=== PATIENT | female | born 2000 | race Caucasian/White ===

== ENCOUNTER 2018-11-20 14:14 | Emergency (ER) | payer BC ==
[~2018-11-20] VITALS: Wt 89.0 kg
[~2018-11-20 14:14] MED LIST: ACET500C5 PO; IBUP-1542 PO
[2018-11-20 14:17] VITALS: BP 130/78; PULSE 76; RESP 18
--- NOTE | 2018-11-20 15:05 | ERD ---
ER Documentation Chief Complaint Chief Complaint with spotting HPI 18-year-old female, previously healthy, with EGA approximately 6 weeks with irregular periods, presents to the emergency department, complaining of 2 days with vaginal spotting, associated with mild cramping pelvic pain. She denies abdominal pain, no fever, no vaginal discharge. The patient has established care at [facility]. ROS All systems reviewed and are negative except as per history of present illness. Medications Home Meds Active Scripts Acetaminophen* (Tylophen*) 500 Mg Capsule, 1 CAP PO Q6H PRN for PAIN AND OR ELEVATED TEMP, #16 CAP Prov:СЕРГЕЙ JIMENEZ MD 11/09/15 Ibuprofen* (Motrin*) 600 Mg Tab, 600 MG PO Q6, #16 TAB Prov:СЕРГЕЙ JIMENEZ MD 11/09/15 PMhx/Soc Medical and Surgical Hx: pt denies Medical Hx, pt denies Surgical Hx History of Surgery: No Anesthesia Reaction: No Hx Neurological Disorder: No Hx Respiratory Disorders: No Hx Cardiac Disorders: No Hx Psychiatric Problems: No Hx Miscellaneous Medical Probl: No Hx Alcohol Use: No Hx Substance Use: No Hx Tobacco Use: No FmHx Family History: No diabetes, No coronary disease Physical Exam Vitals Vital Signs Date Temp Pulse Resp B/P (MAP) Pulse Ox O2 O2 Flow FiO2 Time Delivery Rate 11/20/18 98.2 76 18 130/78 99 14:17 (95) Physical Exam Const: No acute distress Head: Atraumatic Eyes: Normal Conjunctiva ENT: Normal External Ears, Nose and Mouth. Neck: Full range of motion. No meningismus. Resp: Clear to auscultation bilaterally Cardio: Regular rate and rhythm, no murmurs Abd: Soft, non tender, non distended. Normal bowel sounds Skin: No petechiae or rashes Back: No midline or flank tenderness Ext: No cyanosis, or edema Neur: Awake and alert Psych: Normal Mood and Affect Result Diagram: 11/20/18 1507 Results 24 hrs Laboratory Tests Test 11/20/18 15:07 White Blood Count 9.6 10^3/ul Red Blood Count 4.54 10^6/ul Hemoglobin 13.5 g/dl Hematocrit 39.7 % Mean Corpuscular Volume 87.4 fl Mean Corpuscular Hemoglobin 29.7 pg Mean Corpuscular Hemoglobin Concent 34.0 g/dl Red Cell Distribution Width 11.9 % Platelet Count 199 10^3/UL Mean Platelet Volume 10.4 fl Immature Granulocytes % 0.200 % Neutrophils % 70.5 % Lymphocytes % 22.2 % Monocytes % 5.7 % Eosinophils % 1.1 % Basophils % 0.3 % Nucleated Red Blood Cells % 0.0 /100WBC Immature Granulocytes # 0.020 10^3/ul Neutrophils # 6.8 10^3/ul Lymphocytes # 2.1 10^3/ul Monocytes # 0.6 10^3/ul Eosinophils # 0.1 10^3/ul Basophils # 0.0 10^3/ul Nucleated Red Blood Cells # 0.0 10^3/ul Urine Color YELLOW Urine Clarity SLIGHTLY CLOUDY Urine pH 5.0 Urine Specific [place] 1.020 Urine Ketones NEGATIVE mg/dL Urine Nitrite NEGATIVE mg/dL Urine Bilirubin NEGATIVE mg/dL Urine Urobilinogen 1+ mg/dL Urine Leukocyte Esterase TRACE Amy/ul Urine Microscopic RBC 6 /HPF Urine Microscopic WBC 9 /HPF Urine Squamous Epithelial Cells FEW /HPF Urine Hemoglobin 2+ mg/dL Urine Glucose NEGATIVE mg/dL Urine Total Protein NEGATIVE mg/dl Beta HCG, Quantitative 2135.2 mIU/ml Patient: ANNEL AMADOR : 2000 Age: 18 Sex: F MR #: [id number] DOS: 11/20/18 1459 Ordering MD: BENEDICT ANNA MD [facility] Room/Bed: PROCEDURE: US Pelvis/OB. CLINICAL INDICATION: vaginal bleeding TECHNIQUE: Multiple sonographic images of the pelvis were obtained utilizing a transabdominal and endovaginal technique. The images were reviewed on a PACS workstation. COMPARISON: None. FINDINGS: There is a small cystic structure within the endometrium measuring 0.7 cm which would correspond to a calculated gestational age of 5 weeks and 2 days. No pole or yolk sac is yet visualized. The left ovary is not visualized. The right ovary is normal in size and echogenicity and measures 3.2 x 1.9 x 1.9 cm. There is a 1.1 cm right paraovarian simple cyst. There is Doppler flow in the right ovary. No significant free fluid is present within the pelvis. RPTAT: AA IMPRESSION: Possible early intrauterine at 5 weeks and 2 days. No pole or yolk sac is yet visualized. Close followup ultrasound and hCG is recommended. .Sotero Artis MD, MD Date Time Procedures/MDM Vital signs stable, Physical exam unremarkable. Differential diagnosis include but not limited to: UTI, threatening , incomplete versus complete , ectopic , physiologic implantation bleeding, molar . Physical examination and clinical presentation most likely consistent with threatening versus early . During the ED course the patient remained hemodynamically stable and asymptomatic. Results and clinical impression discussed with patient who agrees with management. The patient is stable to be treated outpatient and will be discharged home with close monitoring and follow-up in 2 days with her primary physician. Bed rest and pelvic rest recommended until further medical evaluation. The patient was instructed regarding the outcomes and the potential complications like severe bleeding and . If the patient presents severe bleeding or pain, she was instructed to return to the hospital immediately. Disclaimer: Inadvertent spelling and grammatical errors are likely due to EHR/dictation software use and do not reflect on the overall quality of patient care. Also, please note that the electronic time recorded on this note does not necessarily reflect the actual time of the patient encounter. Departure Diagnosis: Primary Impression: Vaginal bleeding in patient at less than 20 weeks gestation Additional Impression: Threatened Condition: Stable Patient Instructions: Bleeding During Early Additional Instructions: Thank you very much for allowing us to participate in your care. Your health and safety is our top priority at [facility]. Call your primary care doctor TOMORROW for an appointment during the next 2-4 days and bring all the information provided. Have prescriptions filled and follow precisely the directions on the label. If the symptoms get worse and your provider is unavailable, return to the Emergency Department immediately. BENEDICT ANNA MD November 20, 2018 15:05
== END 2018-11-20 16:28 | disposition home or self-care (01) ==
LOC: FTE 14:14
DX: O20.0 Threatened abortion (principal); Z3A.01 Less than 8 weeks gestation of pregnancy
CPT/HCPCS: 36415; 76801; 76817; 81001; 84702; 85025; 86900; 86901

== ENCOUNTER 2018-11-22 23:48 | Emergency (ER) | payer BC ==
[~2018-11-22] VITALS: Ht 167.6 cm; Wt 107.7 kg
[2018-11-22 23:58] VITALS: Ht 167.6 cm; Wt 107.7 kg
--- NOTE | 2018-11-23 01:12 | ERD ---
ER Documentation Chief Complaint Chief Complaint VAG BLEEDING, STATES 5 WKS PREG; PELVIC CRAMPS HPI 18-year-old female with no significant past medical history presenting to the emergency department complaining of intermittent vaginal bleeding for the past several days. Symptoms worsen today. She states she was passing clots today while on the toilet. Associated symptoms include mild pelvic cramping which is intermittent. She denies any abdominal pain, nausea, vomiting, diarrhea, fevers, chills, or other symptoms at this time. ROS All systems reviewed and are negative except as per history of present illness. Medications Home Meds Active Scripts Acetaminophen* (Tylophen*) 500 Mg Capsule, 1 CAP PO Q6H PRN for PAIN AND OR ELEVATED TEMP, #16 CAP Prov:СЕРГЕЙ JIMENEZ MD 11/09/15 Ibuprofen* (Motrin*) 600 Mg Tab, 600 MG PO Q6, #16 TAB Prov:СЕРГЕЙ JIMENEZ MD 11/09/15 Allergies Allergies: Coded Allergies: No Known Allergy (Unverified , 11/22/18) PMhx/Soc Medical and Surgical Hx: pt denies Medical Hx History of Surgery: No Anesthesia Reaction: No Hx Neurological Disorder: No Hx Respiratory Disorders: No Hx Cardiac Disorders: No Hx Psychiatric Problems: No Hx Miscellaneous Medical Probl: No Hx Alcohol Use: No Hx Substance Use: No Hx Tobacco Use: No FmHx Family History: No diabetes Physical Exam Vitals Vital Signs Date Temp Pulse Resp B/P (MAP) Pulse Ox O2 O2 Flow FiO2 Time Delivery Rate 11/23/18 89 16 138/103 100 Room Air 02:40 (115) 11/22/18 99.5 89 18 149/77 100 23:58 (101) Physical Exam Const: No acute distress Head: Atraumatic Eyes: Normal Conjunctiva ENT: Normal External Ears, Nose and Mouth. Neck: Full range of motion. No meningismus. Resp: Clear to auscultation bilaterally Cardio: Regular rate and rhythm, no murmurs Abd: Soft, non tender, non distended. Normal bowel sounds. No McBurney's point tenderness. No rebound tenderness or guarding. Bilateral tenderness palpation of the suprapubic region. Skin: No petechiae or rashes Back: No midline or flank tenderness Ext: No cyanosis, or edema Neur: Awake and alert Psych: Normal Mood and Affect Result Diagram: 5/11/19 0133 Results 24 hrs Laboratory Tests Test 11/23/18 01:33 White Blood Count 12.5 10^3/ul Red Blood Count 4.53 10^6/ul Hemoglobin 13.5 g/dl Hematocrit 40.1 % Mean Corpuscular Volume 88.5 fl Mean Corpuscular Hemoglobin 29.8 pg Mean Corpuscular Hemoglobin Concent 33.7 g/dl Red Cell Distribution Width 11.8 % Platelet Count 198 10^3/UL Mean Platelet Volume 10.5 fl Immature Granulocytes % 0.300 % Neutrophils % 68.1 % Lymphocytes % 23.0 % Monocytes % 6.2 % Eosinophils % 2.1 % Basophils % 0.3 % Nucleated Red Blood Cells % 0.0 /100WBC Immature Granulocytes # 0.040 10^3/ul Neutrophils # 8.5 10^3/ul Lymphocytes # 2.9 10^3/ul Monocytes # 0.8 10^3/ul Eosinophils # 0.3 10^3/ul Basophils # 0.0 10^3/ul Nucleated Red Blood Cells # 0.0 10^3/ul Urine Color RED Urine Clarity CLOUDY Urine pH 6.0 Urine Specific [place] 1.009 Urine Ketones NEGATIVE mg/dL Urine Nitrite NEGATIVE mg/dL Urine Bilirubin NEGATIVE mg/dL Urine Urobilinogen NEGATIVE mg/dL Urine Leukocyte Esterase NEGATIVE Amy/ul Urine Microscopic RBC > 182 /HPF Urine Microscopic WBC 13 /HPF Urine Bacteria FEW /HPF Urine Hemoglobin 3+ mg/dL Urine Glucose NEGATIVE mg/dL Urine Total Protein 2+ mg/dl Beta HCG, Quantitative 1848.5 mIU/ml [place] [id number] Radiology Main Line: [phone] DIAGNOSTIC IMAGING REPORT Patient: ANNEL AMADOR : 2000 Age: 18 Sex: F MR #: [id number] DOS: 11/23/18 0047 Ordering MD: TANYA CROWE PA-C Location: E Room/Bed: PROCEDURE: US OB. CLINICAL INDICATION: Vaginal bleeding. Positive TECHNIQUE: Transabdominal and transvaginal views of the pelvis are available for review. COMPARISON: 11/20/2018 FINDINGS: Uterus: No evidence of masses and normal in size. Endometrial cavity: Intrauterine gestational sac, yolk sac and pole are present with the following information: Kinsey-rump length: 0.33 cm heart rate: 99 bpm Gestational sac: 0.76 cm Ultrasound estimated gestational age: 5 weeks 5 days The gestational sac is now eccentrically located within the lower uterine segment, displaced in a caudal direction compared to the prior examination, a finding raising concern for a threatened spontaneous . No subchorionic hemorrhage is demonstrated at this time. Right ovary/adnexa: Ovarian size is normal estimated at 3.2 x 2.3 x 1.2 cm. No ovarian or adnexal mass lesion is seen. Left ovary/adnexa: The ovary is not visualized. There is no evidence of adnexal mass or free fluid. Cul-de-sac: There is no free fluid. RPTAT:HJJR IMPRESSION: 1. Single live intrauterine with an estimated gestational age of 5 weeks 5 days with concern for embryonic bradycardia and new eccentric location of the gestational sac in the lower uterine segment as compared to the prior study, findings raising concern for threatened spontaneous . Follow-up evaluation is recommended. 2. Unremarkable right ovary, the left ovary is not visualized. Physician Yelena Date Time Electronically viewed and signed by Physician Yelena on 11/23/2018 01:48 JR/ CC: TANYA CROWE PA-C [id number] Procedures/MDM 18-year-old female presenting to the emergency department complaining of worsening vaginal bleeding for the past several days. Patient was seen here approximately 2 days ago for similar symptoms and a work-up including pelvic ultrasound and beta-hCG was obtained. Beta-hCG was downtrending. Pelvic ultrasound today revealed a live intrauterine with bradycardia. Symptoms most consistent with threatened . No evidence to suggest ectopic , tubo-ovarian abscess, ovarian torsion, or other emergencies. Patient stable and appropriate for discharge and further follow-up with her OB/ [employer] and primary care physician. She was in agreement with the diagnosis, plan, need for follow-up, return precautions. Departure Diagnosis: Primary Impression: Vaginal bleeding in patient at less than 20 weeks gestation Condition: Fair Patient Instructions: Bleeding During Early TANYA CROWE PA-C November 23, 2018 01:12
[2018-11-23 02:40] VITALS: BP 138/103; PULSE 89; RESP 16
== END 2018-11-23 02:41 | disposition home or self-care (01) ==
LOC: FTE 23:48
DX: O20.9 Hemorrhage in early pregnancy, unspecified (principal); R10.2 Pelvic and perineal pain; Z3A.01 Less than 8 weeks gestation of pregnancy
CPT/HCPCS: 36415; 76801; 76817; 81001; 84702; 85025

== ENCOUNTER 2019-02-16 11:20 | Emergency (ER) | payer BC ==
[~2019-02-16] VITALS: Wt 105.4 kg
[~2019-02-16 11:20] MED LIST changes: +CEPH-443 PO
--- NOTE | 2019-02-16 12:57 | ERD ---
ER Documentation Chief Complaint Chief Complaint low back pain x 1 week with spotting; unk preg and LMP HPI 18-year-old female with no reported past medical surgical history presents with complaint of lower back pain over the past week along with vaginal spotting. Patient does not clearly recall her last menstrual period but states that it occurred around January 16 of last month. She otherwise denies any dysuria but reports some urinary incontinence. She reports a previous history of gonorrhea and chlamydia around 2 years ago treated. She reports she is not having u nprotected sex most recently in early January. She otherwise denies recent injuries or falls. She denies bilateral lower extremity weakness or numbness. She is requesting testing at this time. When asked if she would like to be tested for STDs patient deferred at this time. ROS All systems reviewed and are negative except as per history of present illness. Medications Home Meds Active Scripts Cephalexin* (Keflex*) 500 Mg Capsule, 500 MG PO BID for 7 Days, CAP Prov:JEUDINE,GETHO PA-C 02/16/19 Ibuprofen* (Motrin*) 600 Mg Tab, 600 MG PO Q6H PRN for PAIN AND OR ELEVATED TEMP, #30 TAB Prov:JEUDINEGETHO PA-C 02/16/19 Acetaminophen* (Tylophen*) 500 Mg Capsule, 1 CAP PO Q6H PRN for PAIN AND OR ELEVATED TEMP, #16 CAP Prov:СЕРГЕЙ JIMENEZ MD 11/09/15 Ibuprofen* (Motrin*) 600 Mg Tab, 600 MG PO Q6, #16 TAB Prov:СЕРГЕЙ JIMENEZ MD 11/09/15 Allergies Allergies: Coded Allergies: No Known Allergy (Unverified , 11/22/18) PMhx/Soc History of Surgery: No Anesthesia Reaction: No Hx Neurological Disorder: No Hx Respiratory Disorders: No Hx Cardiac Disorders: No Hx Psychiatric Problems: No Hx Miscellaneous Medical Probl: No Hx Alcohol Use: No Hx Substance Use: No Hx Tobacco Use: No Smoking Status: Never smoker FmHx Family History: No diabetes, No coronary disease, No other Physical Exam Vitals Vital Signs Date Temp Pulse Resp B/P (MAP) Pulse Ox O2 O2 Flow FiO2 Time Delivery Rate 02/16/19 98.1 81 20 186/109 99 11:39 (134) Physical Exam I have reviewed the triage vital signs. Const: Well nourished, well developed, appears stated age Eyes: PERRL, no conjunctival injection HENT: NCAT, Neck supple without meningismus CV: RRR, Warm, well-perfused extremities RESP: CTAB, Unlabored respiratory effort GI: soft, non-tender, non-distended, no masses MSK: No gross deformities appreciated, no midline tenderness, full range of motion, 5 out of 5 strength to bilateral lower extremities, SI LT throughout Skin: Warm, dry. No rashes Neuro: grossly non focal Psych: Appropriate mood and affect. Results 24 hrs Laboratory Tests Test 02/16/19 12:46 02/16/19 12:58 Urine Color YELLOW Urine Clarity SLIGHTLY CLOUDY Urine pH 7.0 Urine Specific [place] 1.023 Urine Ketones NEGATIVE mg/dL Urine Nitrite NEGATIVE mg/dL Urine Bilirubin NEGATIVE mg/dL Urine Urobilinogen 2+ mg/dL Urine Leukocyte Esterase TRACE Amy/ul Urine Microscopic RBC 4 /HPF Urine Microscopic WBC 28 /HPF Urine Squamous Epithelial Cells MODERATE /HPF Urine Bacteria FEW /HPF Urine Mucus FEW /HPF Urine Hemoglobin 2+ mg/dL Urine Glucose NEGATIVE mg/dL Urine Total Protein 1+ mg/dl POC Beta HCG, Qualitative NEGATIVE Procedures/MDM 18-year-old female presents with complaint of back pain and vaginal spotting. Back pain is mild and patient states she did not require any pain medications and has a nonfocal exam. She is requesting testing as well as rule out UTI. I have low suspicion for any acute process warranting further emergent care than other than documented below. ED course: UA 29 WBCs, trace leukocytes, will treat with a course of Keflex for presumed UTI negative DISPOSITION PLAN: We discussed follow up with the patient's primary care doctor within 24 to 48 hours. Patient counseled regarding my diagnostic impression and care plan. Prior to discharge all questions answered. Pt agrees with treatment plan and understands strict return precautions. Precautionary instructions provided including instructions to return to the ER if not improving or for any worsening or changing symptoms or concerns. Disclaimer: Inadvertent spelling and grammatical errors are likely due to EHR/dictation software use and do not reflect on the overall quality of patient care. Also, please note that the electronic time recorded on this note does not necessarily reflect the actual time of the patient encounter. Departure Diagnosis: Primary Impression: Back pain Condition: Stable PRACHI DORSEY PA-C Feb 16, 2019 12:57
[2019-02-16 13:48] VITALS: BP 136/79; PULSE 77; RESP 20
== END 2019-02-16 13:45 | disposition home or self-care (01) ==
LOC: FTE 11:20
DX: M54.5 Low back pain (principal)
CPT/HCPCS: 36415; 81001; 81025; 84702; 99283